=== PATIENT | male | born 1950 | race Caucasian/White ===

== ENCOUNTER 2017-03-25 05:51 | Inpatient (IN) | payer OTHER ==
[2017-03-20 17:22] LABS: HEMATOCRIT 42.6 % (40.0-51.0); HEMOGLOBIN 14.4 g/dL (13.6-17.8)
[2017-03-20 17:34] LABS: BUN (BLOOD UREA NITROGEN) 14 MG/DL (6-23); CALCIUM, SERUM 9.5 MG/DL (8.5-10.4); CHLORIDE, SERUM 107 MMOL/L (96-112); CO2 (CARBON DIOXIDE) 29 MMOL/L (24-34); CREATININE 1.03 MG/DL (0.70-1.30); GFR AFRICAN AMERICAN 87 ML/MIN (>=60); GFR NON AFRICAN AMERICAN 75 ML/MIN (>=60); GLUCOSE, SERUM 94 MG/DL (60-99); POTASSIUM, SERUM 4.8 MMOL/L (3.5-5.3); SODIUM, SERUM 141 MMOL/L (135-148)
--- NOTE | ~2017-03-25 | OP ---
Record Of Operation [facility] [address] [place]. [address] NAME: JAMAICA GRANDE : 50 STATUS : ADM IN PAT#: [id number] AGE: 66 ADM/REG DATE : 03/25/17 MR#: [id number] REPORT SERV DATE: 03/26/17 DICTATED BY: FELIPE ARAYA DATE: 03/26/17 REPORT STATUS : Draft TRANSCRIBED BY: MODBritany DATE: 03/26/17 DATE OF PROCEDURE: 03/25/2017 PREOPERATIVE DIAGNOSIS: Symptomatic right internal carotid artery stenosis. POSTOPERATIVE DIAGNOSIS: Symptomatic right internal carotid artery stenosis. PROCEDURE: Right carotid endarterectomy with bovine pericardial patch angioplasty. SURGEON: Felipe Araya M.D. ASSISTANTS: Stephie Bianchi and Edinson Hernandez. ANESTHESIA: General. INDICATIONS: The patient is a 66-year-old gentleman, who is well-known to me, who had asymptomatic carotid stenosis. I talked to him about the risks, benefits, and alternatives of carotid endarterectomy for stroke risk reduction. We scheduled him for an operation. 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 Thus, he was consented for a carotid endarterectomy for stroke risk reduction for symptomatic carotid disease. DESCRIPTION OF PROCEDURE: After informed consent was obtained, the patient was taken to the operating room and placed in the supine position on the operating table. He was intubated and general anesthesia was administered. His right neck was prepped and draped in the usual sterile fashion. A longitudinal skin incision was made along the anterior border of the sternocleidomastoid muscle and cautery was used to deepen the incision. I systemically heparinized. I mobilized the jugular vein by dividing the facial vein. I dissected out the distal common carotid artery as well as the proximal internal and external carotid arteries. I then controlled the internal carotid artery as well as the external and common carotid arteries. I drove up the systemic blood pressure. I created a longitudinal arteriotomy extending from the common carotid artery onto the internal carotid artery. I found over a 90% stenosis with plaque ulceration and rupture. I then performed an endarterectomy of the distal common carotid artery as well as the proximal internal and external carotid arteries. There was a lot of inflammation there and the plaque was densely adhered to the arterial wall. I removed the plaque within this region. I made sure that there was no loose debris. I then washed out the area and sewed on a bovine pericardial patch with 6-0 and 5-0 Prolene sutures. I flushed off air and debris before tying down the sutures. I then achieved hemostasis. I released flow to the external carotid artery before the internal carotid artery. I then listened with a continuous wave Doppler and found continuous forward flow within the internal carotid artery with a higher resistant signal in the external carotid artery. I then washed out the wound, achieved hemostasis, and closed the wound in layers. The patient tolerated the procedure well without any intraprocedural complications noted. He awoke with no new neurologic deficits. Record Of Operation [address] [place]. [address] NAME: JAMAICA GRANDE : 50 STATUS : ADM IN [facility]#: [id number] AGE: 66 ADM/REG DATE : 03/25/17 MR#: [id number] REPORT SERV DATE: 03/26/17 DICTATED BY: FELIPE ARAYA DATE: 03/26/17 REPORT STATUS : Draft TRANSCRIBED BY: FRANCSICA DATE: 03/26/17 PERSONAL SERVICE REPRESENTATIVE/FRANCISCA Felipe Araya M.D. / [id number] CC: Felipe Araya M.D.
[~2017-03-25 05:51] MED LIST: AMB10 PO; ASA5GR PO; ASAB PO; CYANO1000T PO; DSS PO; DULERA 100 MCG/13 GM INH; EXALGO12 MG PO; EXALGO32 MG PO; FLOVENT110 INH; LIPITOR40 PO; LOP50 PO; MOBIC15 MG PO; MSCONT15 PO; NEUR100 PO; NORCO1 TA1 PO; NTGOINTUD TOP; PERCOCET1 TA4 PO; PROAIR HFA INH; PROVHFA INH; ROXICODONE15 MG PO; SENTAB PO; SPIRIVA; VENTOLIN HFA INH; XARELTO20 MG PO; ZOCOR40 PO
[2017-03-26] MEDS ORDERED: NORCO1 TA1 PO (10:20)
== END 2017-03-26 11:01 | disposition home or self-care (01) | DRG 38 ==
LOC: SDC/OF 05:51 → PACU 10:19 → CVICU 13:16
PROVIDERS: Surgery
PROC: 03CK0ZZ Extirpation of Matter from Right Internal Carotid Artery, Open Approach (ICD-10-PCS; 2017-03-25)
PROC: 03CM0ZZ Extirpation of Matter from Right External Carotid Artery, Open Approach (ICD-10-PCS; 2017-03-25)
PROC: 03CH0ZZ Extirpation of Matter from Right Common Carotid Artery, Open Approach (ICD-10-PCS; principal; 2017-03-25 07:45)
DX: I65.21 Occlusion and stenosis of right carotid artery (principal); C34.90 Malignant neoplasm of unspecified part of unspecified bronchus or lung; J44.9 Chronic obstructive pulmonary disease, unspecified; I73.9 Peripheral vascular disease, unspecified; F17.210 Nicotine dependence, cigarettes, uncomplicated; Z92.3 Personal history of irradiation
CPT/HCPCS: 80048; 85014; 85018; 87641; 88304; 88311; 93005; A9270-GY; J0690; J1170; J2250; J2370; J2405; J2710; J3010